=== PATIENT | female | born 1975 | race Caucasian/White ===

== ENCOUNTER → 2018-05-04 | Outpatient (CLI) | payer OTHER ==
[2018-05-04 14:03] LABS: Basophils # (A) 0.1 k/uL (0-0.2); Basophils % (A) 2 %; Eosinophils # (A) 0.3 k/uL (0-0.7); Eosinophils % (A) 7 %; HCT 39.6 % (34.0-46.0); HGB 13.3 gm/dL (11.4-16.0); Lymphocytes # (A) 0.8 k/uL (1.0-4.8); Lymphocytes % (A) 18 %; MCH 31.7 pg (25.0-35.0); MCHC 33.7 g/dL (31.0-37.0); MCV 94.2 fL (80.0-100.0); Mean Platelet Volume 8.2; Monocytes # (A) 0.2 k/uL (0-1.0); Monocytes % (A) 4 %; Neutrophils % (A) 69 %; Platelet Count 282 k/uL (150-450); RDW 13.2 % (11.5-15.5); WBC 4.3 k/uL (3.8-10.6)
== END ==
LOC: LABPAT 13:26
PROVIDERS: ATTEND Obstetrics & Gynecology
DX: Z01.812 Encounter for preprocedural laboratory examination (principal); N92.0 Excessive and frequent menstruation with regular cycle; N84.0 Polyp of corpus uteri
CPT/HCPCS: 36415; 85025

== ENCOUNTER 2018-05-11 07:46 | Day surgery (SDC) | payer OTHER ==
[2018-05-05 15:06] VITALS: BMI 34.0
[~2018-05-11 07:46] MED LIST: DEXAMETHASONE SOD PHOSPHATE 10 MG/ML 1 ML VIAL IV ONE; HYDROmorphone 0.5 MG/0.5 ML SYRINGE IVP PRN; HYDROmorphone 1 MG/ML 1 ML SYRINGE IVP PRN; LACTATED RINGERS 1,000 ML IV SCH; LIDOCAINE 1% 20 ML VIAL (10MG/ML) FOR IV START INTRADERMA PRN; MIDAZOLAM 2 MG/2 ML VIAL IV PRN; ONDANSETRON 4 MG/2 ML VIAL IVP ONE; Pre Op ABX Message 1 EACH MISC MISCELLANE ONE; fentaNYL (PF) 50 MCG/ML 2 ML AMP IV PRN
[2018-05-11] MEDS ORDERED: LIDOCAINE 1% INJ 10MG/ML (20 ML MDV) ONE (10:32)
[2018-05-11] MEDS ORDERED: fentaNYL (PF) 50 MCG/ML 2 ML AMP ONE (10:32)
[2018-05-11] MEDS ORDERED: SUCCINYLCHOLINE CHLORIDE 100 MG/5 ML SYR IV ONE (10:32)
[2018-05-11] MEDS ORDERED: KETOROLAC 30 MG/ML 1 ML VIAL ONE (10:32)
[2018-05-11] MEDS ORDERED: PROPOFOL 10 MG/ML 20 ML VIAL IV ONE (10:32)
[2018-05-11] MEDS ORDERED: MIDAZOLAM 2 MG/2 ML VIAL ONE (10:32)
[2018-05-11] MEDS ORDERED: LIDOCAINE 1%-EPI 1:100,000 20 ML VIAL SQ ONE ×2 (10:47)
--- NOTE | 2018-05-11 11:16 | P.OP ---
Date of Procedure: 05/11/18 Preoperative Diagnosis: Dysfunctional uterine bleeding Possible endometrial polyp Postoperative Diagnosis: Dysfunctional uterine bleeding Procedure(s) Performed: Diagnostic hysteroscopy with dilation and curettage and NovaSure endometrial ablation Anesthesia: ANTONIO Surgeon: Isa Dobbins Estimated Blood Loss (ml): 1 IV fluids (ml): 300 Urine output (ml): 150 Pathology: other (Endometrial curettings) Condition: stable Disposition: PACU Operative Findings: Slightly enlarged uterus sounding to 10.5 cm. Fluffy endometrium with no obvious distinct endometrial polyp or intracavitary lesion. Description of Procedure: After the patient and her were met in the preoperative holding area and all questions were answered, she was taken to the operating room where anesthetic was administered without incident. She was then positioned, prepped and draped in the dorsal lithotomy position. Bladder was drained for 150 mL of clear urine. Exam under anesthetic was undertaken. Single-sided speculum was placed in the vagina and the cervix was grasped anteriorly with a single-tooth tenaculum. Paracervical block with lidocaine plus epinephrine was placed. Uterus was sounded to 10.5 cm. Cervix was then sequentially dilated to allow for passage of the diagnostic hysteroscope. Hysteroscope was introduced and a very fluffy endometrium was noted. There did not appear to be any distinct polypoid lesion. The hysteroscope was then removed and the cervix was further dilated to allow for passage of the NovaSure ablation device. The ablation device was then inserted with a cavity length of 5.5 cm, width of 4.0 cm. Cavity assessment test was passed and the device was enabled. The treatment cycle was 95 seconds. Please see nursing notes for moderate. Following cessation of the treatment cycle the device was removed. Hysteroscope was reintroduced and complete desiccation of the endometrium was noted. Instruments were then removed from the uterus and cervix which was observed and noted to be hemostatic. Speculum was then removed from the vagina and the patient was awoken from anesthetic without incident. All counts reported to me as correct by the operating room staff. Patient was transported recovery area in stable condition.
[2018-05-11 11:18] VITALS: TEMP 97
[2018-05-11 11:19] VITALS: RESP 16
[2018-05-11 12:56] VITALS: BP 127/78; PULSE 87
--- NOTE | 2018-05-22 01:40 | P.HPOB ---
History of Present Illness H&P Date: 05/12/18 Chief Complaint: Dysfunctional uterine bleeding This is a 42-year-old woman with dysfunctional uterine bleeding and possible findings of endometrial polyp on pelvic ultrasound. She is scheduled for diagnostic hysteroscopy, D&C and NovaSure endometrial ablation. Review of Systems Constitutional: Denies chills, Denies fever Breasts: absent: masses Cardiovascular: Denies chest pain, Denies shortness of breath Respiratory: Denies cough Gastrointestinal: Denies abdominal pain Genitourinary: Reports abnormal vaginal bleeding, Reports menorrhagia, Denies dysmenorrhea, Denies dyspareunia, Denies hematuria, Denies , Denies vaginal discharge Menstruation: Reports as per HPI Integumentary: Denies rash Psychiatric: Denies anxiety, Denies depression Past Medical History Past Medical History: GERD/Reflux Additional Past Medical History / Comment(s): Hx bronchitis, hiatal hernia. History of Any Multi-Drug Resistant Organisms: None Reported Past Surgical History: Orthopedic Surgery Additional Past Surgical History / Comment(s): LT ELBOW SURGERY X 2. Past Anesthesia/Blood Transfusion Reactions: No Reported Reaction Past Psychological History: Anxiety Additional Psychological History / Comment(s): CLAUSTROPHOBIC. Smoking Status: Never smoker Past Alcohol Use History: Occasional Past Drug Use History: None Reported - Past Family History Mother Family Medical History: No Reported History Father Family Medical History: No Reported History Medications and Allergies Home Medications Medication Instructions Recorded Confirmed Type Escitalopram [Lexapro] 20 mg PO QAM 09/28/14 05/11/18 History Omeprazole 40 mg PO QAM 09/28/14 05/11/18 History Progesterone, Micronized 200 mg PO HS 05/05/18 05/11/18 History [Progesterone] Allergies Allergy/AdvReac Type Severity Reaction Status Date / Time Sulfa (Sulfonamide Allergy Rash/Hives Verified 05/11/18 08:03 Antibiotics) TRILOCAN IN SOAPS Allergy RASH TO Uncoded 05/11/18 08:03 HANDS Exam When examined preoperatively in the office this is a pleasant, female in no apparent distress. HEENT exam is unremarkable with no palpable lymphadenopathy or thyromegaly. Lungs are clear to auscultation bilaterally. The heart is of regular rate and rhythm. The abdomen was soft and nontender. Pelvic exam was unremarkable with normal female external genitalia. Uterus was small, mobile and there were no adnexal masses appreciated. Neurologically she was grossly intact. Mood and affect were also normal. Assessment and Plan (1) Dysfunctional uterine bleeding Status: Acute Code(s): N93.8 - OTHER SPECIFIED ABNORMAL UTERINE AND VAGINAL BLEEDING SNOMED Code(s): 15751184 Plan: 42-year-old woman with dysfunctional uterine bleeding possible endometrial polyp on ultrasound to scheduled for diagnostic hysteroscopy, D&C and NovaSure ablation. This procedure and its risks and benefits have been reviewed with the patient in the office. Risks include but not limited to, bleeding, infection, uterine perforation with damage to internal organs. Patient understands these risks and consent was obtained.
== END 2018-05-11 12:55 | disposition home or self-care (01) ==
LOC: OR 07:46
PROVIDERS: ATTEND Obstetrics & Gynecology
DX: N84.0 Polyp of corpus uteri (principal); N93.8 Other specified abnormal uterine and vaginal bleeding; K21.9 Gastro-esophageal reflux disease without esophagitis; F41.9 Anxiety disorder, unspecified; F32.9 Major depressive disorder, single episode, unspecified; Z79.890 Hormone replacement therapy; Z79.899 Other long term (current) drug therapy; Z88.2 Allergy status to sulfonamides; Z91.09 Other allergy status, other than to drugs and biological substances
CPT/HCPCS: 81025; 88305; 58563; J2250; J1100; J2405; J2001; J3010; J1885; J0330; J2704

== ENCOUNTER → 2019-04-08 | Outpatient (CLI) | payer OTHER ==
--- NOTE | 2019-04-12 10:32 | MM ---
Reason for exam: screening (asymptomatic). Last mammogram was performed 1 year and 1 month ago. History: Taking progesterone for 1 month beginning at age 42. Physical Findings: A clinical breast exam by your physician is recommended on an annual basis and results should be correlated with mammographic findings. MG Screening Mammo w CAD Bilateral CC and MLO view(s) were taken. Prior study comparison: March 20, 2018, bilateral MG screening mammo w CAD. November 29, 2015, bilateral MG screening mammo w CAD. No significant changes when compared with prior studies. ASSESSMENT: Benign, BI-RAD 2 RECOMMENDATION: Routine screening mammogram of both breasts in 1 year.
== END | disposition home or self-care (01) ==
LOC: RADMAMWWP 13:41
PROVIDERS: ATTEND Obstetrics & Gynecology
DX: Z12.31 Encounter for screening mammogram for malignant neoplasm of breast (principal)
CPT/HCPCS: 77067

== ENCOUNTER → 2019-08-30 | Day surgery (SDC) | payer OTHER ==
[2019-08-27 12:46] VITALS: BMI 32.5
[~2019-08-30] MED LIST changes: -DEXAMETHASONE SOD PHOSPHATE 10 MG/ML 1 ML VIAL IV ONE; -HYDROmorphone 0.5 MG/0.5 ML SYRINGE IVP PRN; -HYDROmorphone 1 MG/ML 1 ML SYRINGE IVP PRN; -LIDOCAINE 1% 20 ML VIAL (10MG/ML) FOR IV START INTRADERMA PRN; +LIDOCAINE 1% INJ 10MG/ML (20 ML MDV) ONE; +MIDAZOLAM 2 MG/2 ML VIAL IV ONE; -MIDAZOLAM 2 MG/2 ML VIAL IV PRN; -ONDANSETRON 4 MG/2 ML VIAL IVP ONE; +PROPOFOL 10 MG/ML 20 ML VIAL IV ONE; -Pre Op ABX Message 1 EACH MISC MISCELLANE ONE; -fentaNYL (PF) 50 MCG/ML 2 ML AMP IV PRN
[2019-08-30 12:21] VITALS: RESP 16; TEMP 97.8
--- NOTE | 2019-08-30 13:53 | P.PCN ---
Date of Procedure: 08/30/19 Procedure(s) Performed: Preoperative Dx: GERD Postoperative Dx: Moderate sized hiatal hernia, mild gastritis Procedure: EGD with Bx Anesthesia: Sedation Endoscopist: Dr. Cintron Specimens: Antrum Endoscopic Procedure: The patient was on the endoscopy table in the left decubitus position. The Olympus gastroscope was inserted into the oropharynx and passed under direct visualization to the region of the third portion of the duodenum. From that point the scope was slowly withdrawn inspecting all surfaces carefully. There were no neoplastic inflammatory or polypoid lesions throughout the duodenum. The pylorus was widely patent. The stomach was carefully inspected. There was mild gastritis present. A biopsy of the antrum took place to rule out H. pylori. Retroflexion revealed a moderate sized hiatal hernia. This was difficult to visualize in its entirety as the patient was having difficulties maintaining the pneumogastrium. The GE junction was 4-5 cm proximal to the diaphragmatic hiatus. The patient's esophagus was then carefully examined. There were no neoplastic inflammatory or polypoid lesions throughout the visualized esophagus. The patient was then taken to the recovery room in stable condition per anesthesia guidelines. Recommendations: Continue antiacids. Will discuss surgical repair hiatal hernia with the patient.
[2019-08-30 14:16] VITALS: BP 131/81; PULSE 75
== END ==
LOC: ORWHC2ENDO 11:49
PROVIDERS: ATTEND Surgery
DX: K29.50 Unspecified chronic gastritis without bleeding (principal); K44.9 Diaphragmatic hernia without obstruction or gangrene; K21.9 Gastro-esophageal reflux disease without esophagitis; F41.9 Anxiety disorder, unspecified; I10 Essential (primary) hypertension; E66.9 Obesity, unspecified; Z68.32 Body mass index [BMI] 32.0-32.9, adult; Z79.899 Other long term (current) drug therapy; Z88.2 Allergy status to sulfonamides; Z98.890 Other specified postprocedural states; Z83.79 Family history of other diseases of the digestive system
CPT/HCPCS: 81025; 88305; 88342; 43239; J2250; J2001; J2704

== ENCOUNTER → 2020-04-26 | Outpatient (CLI) | payer OTHER ==
--- NOTE | 2020-05-01 08:25 | MM ---
Reason for exam: screening (asymptomatic). Last mammogram was performed 1 year and 1 month ago. History: Taking progesterone for 1 month beginning at age 42. Physical Findings: A clinical breast exam by your physician is recommended on an annual basis and results should be correlated with mammographic findings. MG Screening Mammo w CAD Bilateral CC and MLO view(s) were taken. Prior study comparison: April 08, 2019, bilateral MG screening mammo w CAD. March 20, 2018, bilateral MG screening mammo w CAD. The breast tissue is heterogeneously dense. This may lower the sensitivity of mammography. No significant changes when compared with prior studies. ASSESSMENT: Benign, BI-RAD 2 RECOMMENDATION: Routine screening mammogram of both breasts in 1 year.
== END | disposition home or self-care (01) ==
LOC: RADMAMWWP 13:40
PROVIDERS: ATTEND Obstetrics & Gynecology
DX: Z12.31 Encounter for screening mammogram for malignant neoplasm of breast (principal)
CPT/HCPCS: 77067

== ENCOUNTER 2020-08-18 06:25 | Inpatient (IN) | payer OTHER ==
--- NOTE | 2020-08-17 22:11 | P.GSHP ---
History of Present Illness H&P Date: 08/17/20 Chief Complaint: Hiatal hernia with reflux 45-year-old female known to our service. Last seen in the office in September 2019. Patient underwent EGD prior to that showing a moderate sized hiatal hernia. Patient describes episodes of frequent vomiting, chronic regurgitation and reflux. Patient was unable to complete esophageal manometry. Patient states she has more difficulty eating solids. Strong family history of hiatal hernia of moderate to large size with both her twin sister, an additional sister, and her mother having hiatal hernias. Patient takes proton pump inhibitors and Carafate daily. Past Medical History Past Medical History: Asthma, GERD/Reflux, Seizure Disorder Additional Past Medical History / Comment(s): abd. pain, hiatal hernia, N/V @least few times per week, one time seizure as a child, took meds for several yrs. as a kid, LAST SEIZURE AT AGE 2. History of Any Multi-Drug Resistant Organisms: None Reported Past Surgical History: Orthopedic Surgery, Uterine Ablation Additional Past Surgical History / Comment(s): LT ELBOW SURGERY X 2 Past Anesthesia/Blood Transfusion Reactions: No Reported Reaction Smoking Status: Never smoker - Past Family History Mother Family Medical History: No Reported History Father Family Medical History: No Reported History Medications and Allergies Home Medications Medication Instructions Recorded Confirmed Type Escitalopram [Lexapro] 20 mg PO QAM 09/28/14 08/14/20 History Omeprazole 40 mg PO QAM 09/28/14 08/14/20 History Sucralfate [Carafate] 1 gm PO QID PRN 08/27/19 08/14/20 History L.acidoph,Paracasei, B.lactis 1 each PO DAILY 08/14/20 08/14/20 History [Probiotic] Allergies Allergy/AdvReac Type Severity Reaction Status Date / Time Sulfa (Sulfonamide Allergy Rash/Hives Verified 08/27/19 12:16 Antibiotics) triclosan Allergy Rash/Hives Verified 08/14/20 10:00 Surgical - Exam Physical exam: General: Well-developed, well-nourished HEENT: Normocephalic, sclerae nonicteric Abdomen: Nontender, nondistended Extremities: No edema Neuro: Alert and oriented Assessment and Plan (1) Hiatal hernia with gastroesophageal reflux Narrative/Plan: 45-year-old female with moderate size hiatal hernia along with chronic reflux and frequent vomiting. Esophageal manometry study unable to be performed. Patient states she is interested in repair of the hiatal hernia without fundoplication which is reasonable given the patient's intolerance of manometry studies. Partial wrap also discussed as an option the patient and I have agreed to proceed with hernia repair only with possible absorbable mesh placement. The risks of bleeding, infection, stenosis, stricture, leak, abscess, fistula formation, peritonitis, persistent reflux, vomiting, conversion to an open procedure, OK, PE, DVT, and were discussed. The patient understands and wishes to proceed. Status: Acute Code(s): K21.9 - GASTRO-ESOPHAGEAL REFLUX DISEASE WITHOUT ESOPHAGITIS; K44.9 - DIAPHRAGMATIC HERNIA WITHOUT OBSTRUCTION OR GANGRENE SNOMED Code(s): 561399826
[~2020-08-18 06:25] MED LIST changes: +ACETAMINOPHEN TAB 500 MG TAB PO PRN; +HEPARIN SODIUM,PORCINE 5,000 UNIT/ML 1 ML VIAL SQ PRN; -LACTATED RINGERS 1,000 ML IV SCH; -LIDOCAINE 1% INJ 10MG/ML (20 ML MDV) ONE; -MIDAZOLAM 2 MG/2 ML VIAL IV ONE; -PROPOFOL 10 MG/ML 20 ML VIAL IV ONE
[2020-08-18] MEDS ORDERED: MIDAZOLAM 2 MG/2 ML VIAL IV PRN (07:00)
[2020-08-18] MEDS ORDERED: LIDOCAINE 1% (10MG/ML) FOR IV START INTRADERMA PRN (07:14)
[2020-08-18] MEDS ORDERED: DEXAMETHASONE SOD PHOSPHATE 4 MG/ML 1 ML VIAL IV ONE (07:14)
[2020-08-18] MEDS ORDERED: SCOPOLAMINE 1.5MG/72HR PATCH TRANSDERM ONE (07:14)
[2020-08-18] MEDS: LACTATED RINGERS 1,000 ML IV SCH (07:16)
[2020-08-18] MEDS ORDERED: LIDOCAINE 1% INJ 10MG/ML (20 ML MDV) ONE (07:49)
[2020-08-18] MEDS ORDERED: SUCCINYLCHOLINE CHLORIDE 100 MG/5 ML SYR IV ONE (07:49)
[2020-08-18] MEDS ORDERED: ePHEDrine SULFATE/0.9% NACL/PF 50 MG/5 ML SYRINGE IV ONE (07:49)
[2020-08-18] MEDS ORDERED: fentaNYL (PF) 50 MCG/ML 2 ML AMP ONE (07:49)
[2020-08-18] MEDS ORDERED: MIDAZOLAM 2 MG/2 ML VIAL ONE (07:49)
[2020-08-18] MEDS ORDERED: PROPOFOL 10 MG/ML 20 ML VIAL IV ONE (07:49)
[2020-08-18] MEDS ORDERED: ROCURONIUM 10 MG/ML (10 ML VIAL) IV ONE (07:49)
[2020-08-18] MEDS ORDERED: GLYCOPYRROLATE 0.2 MG/ML 2 ML VIAL ONE (07:49)
[2020-08-18] MEDS ORDERED: NEOSTIGMINE 1 MG/ML 10 ML VIAL ONE (07:49)
[2020-08-18] MEDS ORDERED: BUPIVACAINE (PF) 0.25% 30 ML VIAL SQ ONE (07:51)
[2020-08-18] MEDS ORDERED: LACTATED RINGERS 1,000 ML IV ONE (09:05)
[2020-08-18] MEDS ORDERED: HYDROmorphone 1 MG/ML 1 ML SYRINGE IVP PRN (09:36)
[2020-08-18] MEDS ORDERED: ONDANSETRON 4 MG/2 ML VIAL IVP PRN (09:36)
--- NOTE | 2020-08-18 09:42 | P.OP ---
Date of Procedure: 08/18/20 Procedure(s) Performed: PROCEDURE(S) PERFORMED: PREOPERATIVE DIAGNOSIS: GERD, hiatal hernia POSTOPERATIVE DIAGNOSIS: Same PROCEDURE: Laparoscopic repair hiatal hernia SURGEON: Saida EBL: Minimal ANESTHESIA: General COMPLICATIONS: None OPERATIVE PROCEDURE: Patient was placed in the operating table in the supine position. She was placed under general anesthesia at that time. The abdomen was prepped and draped in sterile fashion after the patient was placed in lithotomy. A 5 mm optical trocar was used to enter the abdominal cavity in the left upper quadrant. Insufflation took place to 15 monitor mercury. An additional right subxiphoid 5 mm trocar was then placed under direct relation and then removed. 2 additional 5 mm trochars were placed in the right upper quadrant and left upper quadrant under direct relation and a 10 mm trocar in the left upper quadrant inferior to the initial 5 mm spot. The left lower liver was retracted anteriorly using the [place] medium liver retractor. The diaphragm was inspected. The patient had a moderate sized hiatal hernia. Circumferentially the phrenoesophageal ligament was incised identifying the actual defect. Dissection of the esophagus up into the diaphragm took place for a distance of approximately 5-6 cm. Circumferentially we had excellent mobilization at this point. The defect posteriorly was moderate in size. 3 separate 2-0 Ethibond sutures were used to reapproximate the posterior diaphragmatic crura and tied down using the tie knot device. The 54-Italian bougie dilator was used to confirm that it was not overly tight. The muscle appeared strong and the defect was smaller than expected. No mesh was utilized. Per the discussion with the patient preoperatively no wrap took place given the patient's frequent vomiting and inability to have manometry performed. The remainder the stomach and upper abdominal cavity appeared normal. The insufflation was evacuated. The skin at all 5 incisions were closed using 4-0 Monocryl sutures. Skin glue was then applied. DISPOSITION: Stable to recovery room
[2020-08-18 12:24] VITALS: BMI 31.8
[2020-08-18] MEDS: D5-0.45% NACL WITH KCL 20MEQ/L 1,000 ML IV SCH ×2 (13:36→19:31)
[2020-08-18] MEDS: METOCLOPRAMIDE 5 MG/ML 2 ML VIAL IVP SCH ×3 (13:55→23:04)
--- NOTE | 2020-08-18 15:23 | FL ---
EXAMINATION TYPE: FL esophagus cervic/pharynx DATE OF EXAM: 08/18/2020 HISTORY: Status post fundoplication COMPARISON: NONE TECHNIQUE: A single contrast limited esophagram is performed, attention directed to the gastroesopha geal junction FINDINGS: 28 seconds fluoroscopy time, 3 intraoperative images. There is postop procedural change at the distal esophagus and upper stomach. There is no evident extr avasation of contrast material. No obstruction to flow. Some minimal basilar atelectasis is noted inc identally. IMPRESSION: No complication evident status post fundoplication
[2020-08-18] MEDS: HEPARIN SODIUM,PORCINE 5,000 UNIT/ML 1 ML VIAL SQ SCH ×2 (15:27→23:04)
[2020-08-18 15:32] VITALS: RESP 16
[2020-08-18] MEDS: FAMOTIDINE 20 MG/2 ML VIAL IV SCH (19:28)
[2020-08-19] MEDS: D5-0.45% NACL WITH KCL 20MEQ/L 1,000 ML IV SCH (01:50)
[2020-08-19] MEDS: METOCLOPRAMIDE 5 MG/ML 2 ML VIAL IVP SCH (05:46)
[2020-08-19] MEDS ORDERED: HYDROmorphone 0.5 MG/0.5 ML SYRINGE IVP PRN (07:00)
[2020-08-19] MEDS ORDERED: ONDANSETRON 4 MG/2 ML VIAL IVP PRN (07:00)
[2020-08-19] MEDS: LACTATED RINGERS 1,000 ML IV SCH (07:07)
[2020-08-19] MEDS: HEPARIN SODIUM,PORCINE 5,000 UNIT/ML 1 ML VIAL SQ SCH (07:36)
[2020-08-19] MEDS: FAMOTIDINE 20 MG/2 ML VIAL IV SCH (07:36)
[2020-08-19 07:38] VITALS: BP 124/80; PULSE 74; TEMP 99.5
--- NOTE | 2020-08-19 10:41 | P.PN ---
Progress Note - Text Progress Note Date: 08/19/20 Patient is doing well. She has no complaints of significant pain. On exam vitals are still. Soft. Patient will be discharged home today. She'll follow-up Dr. Cintron next week.
== END 2020-08-19 11:40 | disposition home or self-care (01) | DRG 328 ==
LOC: 2ORMAIN 06:25 → EDSTATUS 07:45 → 6PED 09:58 → 4SSUR 16:43
PROVIDERS: ADMIT Surgery; ATTEND Surgery
PROC: 0BQT4ZZ Repair Diaphragm, Percutaneous Endoscopic Approach (ICD-10-PCS; principal; 2020-08-18 07:45)
DX: K44.9 Diaphragmatic hernia without obstruction or gangrene (principal); K21.9 Gastro-esophageal reflux disease without esophagitis; G40.909 Epilepsy, unspecified, not intractable, without status epilepticus; J45.909 Unspecified asthma, uncomplicated; Z98.890 Other specified postprocedural states; Z79.899 Other long term (current) drug therapy; Z88.2 Allergy status to sulfonamides; Z88.8 Allergy status to other drugs, medicaments and biological substances
CPT/HCPCS: 74210; 81025

== ENCOUNTER → 2021-08-09 | Outpatient (CLI) | payer OTHER ==
--- NOTE | 2021-08-09 16:09 | FL ---
EXAMINATION TYPE: FL UGI air DATE OF EXAM: 08/09/2021 COMPARISON: None HISTORY: Vomiting TECHNIQUE: Single contrast technique was utilized to evaluate the upper GI FINDINGS: Fluoroscopy time: 1 minute 15 seconds. Images: 81 Esophagus dilates to normal caliber and has normal contour the gastroesophageal junction. Gastroesoph ageal junction opens normal caliber. Secondary and tertiary contractions are evident within the distal third of the esophagus. Fundus body and antrum of the stomach are evaluated. No intraluminal or extramural defects evident. D uodenal cap and sweep are normal position. IMPRESSION: 1. Mild presbyesophagus
== END | disposition home or self-care (01) ==
LOC: RADUSWWP 09:55
PROVIDERS: ATTEND Surgery
DX: K22.89 Other specified disease of esophagus (principal)
CPT/HCPCS: 74246

== ENCOUNTER → 2021-08-16 | Outpatient (CLI) | payer OTHER ==
--- NOTE | 2021-08-17 11:04 | MM ---
Reason for exam: screening (asymptomatic). Last mammogram was performed 1 year and 4 months ago. History: Taking progesterone for 1 month beginning at age 42. Physical Findings: A clinical breast exam by your physician is recommended on an annual basis and results should be correlated with mammographic findings. MG Screening Mammo w CAD Bilateral CC and MLO view(s) were taken. Prior study comparison: April 26, 2020, bilateral MG screening mammo w CAD. April 08, 2019, bilateral MG screening mammo w CAD. The breast tissue is heterogeneously dense. This may lower the sensitivity of mammography. No significant changes when compared with prior studies. ASSESSMENT: Benign, BI-RAD 2 RECOMMENDATION: Routine screening mammogram of both breasts in 1 year.
== END | disposition home or self-care (01) ==
LOC: RADMAMWWP 16:32
PROVIDERS: ATTEND Obstetrics & Gynecology
DX: Z12.31 Encounter for screening mammogram for malignant neoplasm of breast (principal)
CPT/HCPCS: 77067

== ENCOUNTER → 2021-10-31 | Outpatient (CLI) | payer OTHER ==
[2021-10-31 18:59] LABS: Basophils # (A) 0.07 X 10*3/uL (0.00-0.10); Basophils % (A) 1.3 %; Eosinophils # (A) 0.24 X 10*3/uL (0.04-0.35); Eosinophils % (A) 4.4 %; HCT 42.3 % (37.2-46.3); Immature Grans, Automated 0.4 %; Lymphocytes # (A) 1.04 X 10*3/uL (0.90-5.00); Lymphocytes % (A) 19.2 %; MCH 32.1 pg (27.0-32.0); MCHC 33.1 g/dL (32.0-37.0); Monocytes # (A) 0.46 X 10*3/uL (0.20-1.00); Monocytes % (A) 8.5 %; NRBC Per 100 WBC 0 /100 WBCS (0.0-0.0); Neutrophils % (A) 66.2 %; Platelet Count 286 X 10*3/uL (140-440); RBC 4.36 X 10*6/uL (4.10-5.20); WBC 5.43 X 10*3/uL (4.50-10.00)
[2021-10-31 20:05] LABS: Erythrocyte Sedimentation Rate 19 mm/Hr (0-20)
[2021-11-01 00:30] LABS: African American GFR (CKD) 84.7 (60.0-200.0); Albumin 4.4 g/dL (3.8-4.9); Albumin/Globulin Ratio 2.04 (1.60-3.17); Anion Gap 13.7 mmol/L (10.00-18.00); BUN/Creat Ratio 22.35 Ratio (12.00-20.00); Blood Urea Nitrogen 20.7 mg/dL (9.0-27.0); C Reactive Protein 0.6 mg/dL (0.00-0.80); Calcium 9.7 mg/dL (8.7-10.3); Carbon Dioxide 20.7 mmol/L (20.0-27.5); Globulin 2.2 g/dL (1.6-3.3); Non-African American GFR(CKD) 73.1 (60.0-200.0); Potassium 4.5 mmol/L (3.5-5.5); Total Bilirubin 0.3 mg/dL (0.30-1.20); Total Protein 6.6 g/dL (6.2-8.2)
[2021-11-01 21:26] LABS: Gliadin AB IgA, Deaminated NEGATIVE (NEGATIVE); Gliadin AB IgA, Unit <0.2 U/mL; Gliadin AB IgG, Deaminated NEGATIVE (NEGATIVE); Gliadin AB IgG, Unit <0.4 U/mL
== END | disposition home or self-care (01) ==
LOC: LABWHC1 12:50
PROVIDERS: ATTEND Internal Medicine Gastroenterology
DX: K52.9 Noninfective gastroenteritis and colitis, unspecified (principal)
CPT/HCPCS: 36415; 80053; 83516; 85025; 85652; 86140

== ENCOUNTER → 2022-08-19 | Outpatient (CLI) | payer OTHER ==
--- NOTE | 2022-08-20 08:15 | MM ---
Reason for Exam: Screening (asymptomatic). Last screening mammogram was performed 12 month(s) ago. Patient History: Menarche at age 10. First Full-Term at age 17. Currently using Progesterone, for 1 month. Risk Values: Maggie 5 year model risk: 0.7%. NCI Lifetime model risk: 6.6%. Prior Study Comparison: 11/29/2015 Bilateral Screening Mammogram, [facility]. 03/20/2018 Bilateral Screening Mammogram, [facility] 04/08/2019 Bilateral Screening Mammogram, [facility]. 04/26/2020 Bilateral Screening Mammogram, [facility]. 08/16/2021 Bilateral Screening Mammogram, [facility]. Tissue Density: The breast tissue is heterogeneously dense. This may lower the sensitivity of mammography. Findings: Analyzed By CAD. There is no suspicious group of microcalcifications or new suspicious mass in either breast. Overall Assessment: Negative, BI-RAD 1 Management: Screening Mammogram of both breasts in 1 year. A clinical breast exam by your physician is recommended on an annual basis and results should be correlated with mammographic findings. Electronically signed and approved by: Trace Owens D.O.
== END | disposition home or self-care (01) ==
LOC: RADMAMWWP 12:37
PROVIDERS: ATTEND Obstetrics & Gynecology
DX: Z12.31 Encounter for screening mammogram for malignant neoplasm of breast (principal)
CPT/HCPCS: 77067

== ENCOUNTER → 2023-10-15 | Outpatient (CLI) | payer OTHER ==
--- NOTE | 2023-10-17 08:42 | MM ---
Reason for Exam: Screening (asymptomatic). Last mammogram was performed 1 year(s) and 2 month(s) ago. Patient History: Menarche at age 10. First Full-Term at age 17. Postmenopausal. Currently using Progesterone, for 1 month. Risk Values: Maggie 5 year model risk: 0.7%. NCI Lifetime model risk: 6.5%. Prior Study Comparison: 04/26/2020 Bilateral Screening Mammogram, [facility]. 08/16/2021 Bilateral Screening Mammogram, [facility]. 08/19/2022 Bilateral MG screening mammo w CAD, [facility]. Tissue Density: The breasts are heterogeneously dense, which may obscure small masses. Findings: Analyzed By CAD. The pattern is symmetrical. Benign vascular calcification is present bilaterally. No suspicious groups of microcalcifications, spiculated or lobular masses, architectural distortion or other secondary signs of malignancy are mammographically apparent. Overall Assessment: Benign, BI-RAD 2 Management: Screening Mammogram of both breasts in 1 year. A negative mammogram report should not preclude additional follow up of suspicious palpable abnormalities. Patient should continue monthly self breast exam. A clinical breast exam by your physician is recommended on an annual basis and results should be correlated with mammographic findings. Electronically signed and approved by: Mauro Martinez D.O. Radiologis
== END | disposition home or self-care (01) ==
LOC: RADMAMWWP 14:07
PROVIDERS: ATTEND Obstetrics & Gynecology
DX: Z12.31 Encounter for screening mammogram for malignant neoplasm of breast (principal); Z78.0 Asymptomatic menopausal state
CPT/HCPCS: 77063; 77067

== ENCOUNTER → 2024-06-30 | Outpatient (CLI) | payer OTHER ==
--- NOTE | 2024-06-30 15:08 | CT ---
EXAMINATION TYPE: CT cervical spine wo con CT DLP: 625.6 mGycm, Automated exposure control for dose reduction was used. DATE OF EXAM: 06/30/2024 2:53 PM COMPARISON: None. CLINICAL INDICATION:Female, 48 years old with history of M54.12 CERVICAL RADICULOPATHY; PHH, neck allyson n, numbness in hands TECHNIQUE: Axial CT images from the skull base to the inferior aspect of T2 we obtained without intra venous contrast. Coronal and sagittal reformatted images were also reviewed. FINDINGS: Fracture: None. Osseous structures: Disc space narrowing with anterior osteophytosis at C5-C7. Vertebral alignment: No spondylolisthesis. Reversal of the normal cervical lordosis which may be due to patient position versus muscle spasm. Spinal canal/Neural Foramina: No significant central canal or neural foraminal stenosis at C2-C3, C4-C5, and C7-T1. Central disc protrusion with no significant effacement of the anterior thecal sac at C3-C4. No neural foraminal stenosis at this level. Posterior disc osteophyte complex at C5-C6 with mild effacement of anterior thecal sac. Mild right ne ural foraminal stenosis. No left neural foraminal stenosis. Posterior disc osteophyte complex at C6-C7 with mild effacement of anterior thecal sac. Mild right ne ural foraminal stenosis. No left neural foraminal stenosis. Neck soft tissues: Prevertebral soft tissues are within normal limits. Other: The airway is patent. The lung apices are clear. There are 2 slightly hyperdense nodules infer ior to the left thyroid lobe extending into the superior mediastinum measuring 1.1 and 1.6 cm (series 3, image 92 and 99). IMPRESSION: 1. No evidence of cervical spine fracture. 2. Mild multilevel degenerative disc disease. 3. There are 2 indeterminate nodules below the left thyroid lobe extending in the superior mediastinu m measuring up to 1.6 cm. May represent ectopic thyroid nodules versus other etiologies. Consider fur ther evaluation with ultrasound. [facility], , 06/30/2024 3:06 PM
== END | disposition home or self-care (01) ==
LOC: RADCTMAIN 14:12
PROVIDERS: ATTEND Psychiatry & Neurology Neurology
DX: M50.11 Cervical disc disorder with radiculopathy, high cervical region (principal)
CPT/HCPCS: 72125

== ENCOUNTER → 2024-11-10 | Outpatient (CLI) | payer OTHER ==
--- NOTE | 2024-11-11 07:39 | MM ---
Reason for Exam: Screening (asymptomatic). Last mammogram was performed 1 year(s) and 1 month(s) ago. Patient History: Menarche at age 10. First Full-Term at age 17. Postmenopausal. Currently using Progesterone, for 1 month. Risk Values: Maggie 5 year model risk: 0.7%. NCI Lifetime model risk: 6.4%. Prior Study Comparison: 08/16/2021 Bilateral Screening Mammogram, [facility]. 08/19/2022 Bilateral MG screening mammo w CAD, [facility]. 10/15/2023 Bilateral MG 3D screening mammo w/cad, [facility]. Tissue Density: The breasts are heterogeneously dense, which may obscure small masses. Findings: Analyzed By CAD. There is no suspicious group of microcalcifications or new suspicious mass in either breast. Overall Assessment: Benign, BI-RAD 2 Management: Screening Mammogram of both breasts in 1 year. . Patient should continue monthly self-breast exams. A clinical breast exam by your physician is recommended on an annual basis. This exam should not preclude additional follow-up of suspicious palpable abnormalities. Note on Maggie scores and lifetime risk: 1. A Maggie score greater than 3% is considered moderate risk. If this is the case, consider specialist referral to assess eligibility for a risk reducing agent. 2. If overall lifetime risk for the development of breast cancer is 20% or higher, the patient may qualify for future screening with alternating mammogram and breast MRI. [facility], , 11/11/2024 7:36 AM. Electronically signed and approved by: Ross Hansen M.D. Radiologis
== END | disposition home or self-care (01) ==
LOC: RADMAMWWP 15:17
PROVIDERS: ATTEND Obstetrics & Gynecology
DX: Z12.31 Encounter for screening mammogram for malignant neoplasm of breast (principal); R92.333 Mammographic heterogeneous density, bilateral breasts; Z78.0 Asymptomatic menopausal state
CPT/HCPCS: 77063; 77067